=== PATIENT | female | born 1965 | race Caucasian/White ===

== ENCOUNTER 2017-03-14 20:02 | Emergency (ER) | payer OTHER ==
--- NOTE | 2017-03-14 21:05 | ED NURSING NOTES ---
Clinical Report - Nurses [facility] [address] [place] [address] 03/14/2017 20:05 Patient: KATIA JUNIOR TRIAGE Acuity: LEVEL 3. Chief Complaint: REDNESS, PAIN and FOREIGN BODY TO RIGHT EYE. Alert. No acute distress. VISUAL ACUITY: Visual acuity performed without corrective lenses: right eye 20/70; both eyes 20/25. --20:22 Mary Connor R.N. 20:19 03/14/17. BP: 147/90. HR: 88. RR: 20. O2 saturation: 100%. Pain level now: 05/13. --20:22 Mary Connor R.N. 21:09 03/14/17. Temp: 97.7 F (oral). --21:09 Mary Connor R.N. Weight: 63.5 kg stated. Height/Length: 63 inches Per Patient. BMI: 24.8. --20:19 Mary Connor R.N. Medications Percocet Oral. --20:20 Mary Connor R.N. Flonase Nasal. --20:20 Mary Connor R.N. Medication/allergy information source: the patient. --20:22 Mary Connor R.N. Allergies No Known Drug Allergy. --20:20 Mary Connor R.N. History Arrived by private vehicle. Historian: patient. Accompanied by friend. Primary physician (Anibal). This started just prior to arrival. PAST MEDICAL HX: The patient is post-menopausal. SOCIAL HX: Heavy tobacco smoker (cigarette)- less than 1 pack per day. No alcohol use or drug use. FALL RISK ASSESSMENT: Fall risk assessment completed. No fall risk identified. NUTRITIONAL RISK ASSESSMENT: The nutritional risk assessment revealed no deficiencies. FUNCTIONAL ASSESSMENT: Functional assessment: no impairments noted. LEARNING NEEDS ASSESSMENT: The learning needs assessment revealed no barriers. SKIN INTEGRITY ASSESSMENT: Skin integrity risk assessment completed. No skin integrity risk identified. --20:22 Mary Connor R.N. Interventions ID band on patient. To treatment room. --20:22 Mary Connor R.N. NURSING PROGRESS NOTES Two patient identifiers checked. Call light placed in reach. Side rails up x 1. Bed placed in lowest position. Brakes of bed on. Patient ready for evaluation- chart flagged and ED physician and PA notified. --20:22 Mary Connor R.N. 20:49 03/14/17. Irrigated right eye with 500 mL normal saline. Topical anesthetic drops were applied prior to irrigation. Patient tolerated procedure well. --20:49 Mary Connor R.N. 21:03/14/2017 Motrin PO 800 mg given. Allergies verified and confirmed 5 rights. --21: Mary Connor R.N. 21:03/14/2017 Hydrocodone-APAP (Hydrocodone-Acetaminophen) PO 5/325 mg Tablets 1 tab given. Allergies verified, confirmed 5 rights and sedative warning given to the patient. --21: Mary Connor R.N. DISPOSITION / DISCHARGE Departure time: 21:Mar 14 2017. Condition at departure: improved and stable. No learning barriers present. Discharge instructions provided and reviewed with the patient. Reviewed medication(s) side effects, precautions and dosing information. Prescription(s) given to the patient. Patient verbalized understanding. Written instructions provided in [place]. The patient was discharged by the physician shipping assistant. She was discharged home and accompanied by dehydrogenation operator. She left the Emergency Department ambulatory and via private vehicle. Roulette Dealer driving. --21:56 Mary Connor R.N. Locked/Released at 03/14/2017 21:56 by Mary Connor R.N.
--- NOTE | 2017-03-14 21:05 | ED CLINICAL REPORT ---
Clinical Report - Physicians/Mid Levels [facility] [address] [place] [address] 03/14/2017 20:05 Patient: KATIA JUNIOR Time Seen: 20:43 Bryan 11 2016. Arrived- By private vehicle. Historian- patient. HISTORY OF PRESENT ILLNESS Chief Complaint: EYE PAIN, REDNESS and IRRITATION. This started just prior to arrival, involves the right eye and is characterized as mild. The patient may have sustained an injury. Not injured from contact lenses. Eye pain, discomfort and redness. ( While mowing the lawn, patient sustained a foreign body sensation to the right eye. Incident occurred just prior to arrival. No diplopia, no vision changes, blurred vision and sensation of fb. At times does wear contacts, has not recently, is not currently.). REVIEW OF SYSTEMS No fever or sore throat. All systems otherwise negative, except as recorded above. PAST HISTORY No history of prior eye injury. ADDITIONAL NOTES The nursing notes have been reviewed. PHYSICAL EXAM Vital Signs: 03/14/2017 20:19 BP: 147/90. HR: 88. RR: 20. O2 saturation: 100%. Pain level now: 8/10. Appearance: Alert. HEENT: Ears normal. Nose normal. Head appears normal to external inspection. Rt Eye: Injected conjunctiva. Corneal foreign body is present. Corneal abrasion present. Fluorescein dye uptake on the cornea. Pupil regular. Pupil not constricted. No cells present in the anterior chamber. Eyes: Visual acuity noted- see nurse's notes. Right eyelid everted for examination. Right cornea examined with fluorescein stain. Eyelids appear normal to inspection. Conjunctivae and sclerae appear normal to inspection. Corneas appear normal to inspection. Pupils equal, round and reactive to light. Accommodation normal. Right eye examined with slit lamp. Anterior chambers clear. Anterior chambers of normal depth. Lt Eye: Left eye exam normal. Neck: Neck supple. Normal inspection. CVS: Normal heart rate and rhythm. Heart sounds normal. Normal rhythm. No cardiac murmur. Respiratory: No respiratory distress. Breath sounds normal. Skin: No rash. Neuro: Oriented X 3. PROGRESS AND PROCEDURES Removal of Eye Foreign Body: Time: 2054Mar 14 2017. Time-out completed immediately before the procedure. After topical anesthesia with 2 drops of Proparacaine, a single foreign body was successfully removed from the right eye using irrigation, fluorescein and a Wood's lamp. Aftercare included antibiotic ointment. The patient was cooperative. Course of Care: Patient was small dust particles in the eye, which were removed successfully in the emergency department. Patient taller procedure well. Given injury and injection will treat with antibiotics. Patient with no vision changes. Stable. To f/u outpatient. No other protruding injuries. Exam with slit lamp. right eye 20/70; both eyes 20/25. 03/14/2017 21:09 Temp: 97.7 F. 03/14/2017 20:19 BP: 147/90. HR: 88. RR: 20. O2 saturation: 100%. Pain level now: 8/10. Patient is stable. Patient/family counseled. Disposition: Discharged. Condition: good. CLINICAL IMPRESSION Removed corneal foreign body right eye. INSTRUCTIONS (Address: [address] [place] [address] [place] [address] [employer] cool rags to eye). Prescription Medications: Polytrim ophthalmic solution: Instill 1 drop into affected eye every 3 hours while awake (max 6 doses per day) for 1 week. Dispense five (5) mL. No refills. Substitution is permissible. Ibuprofen 600 mg tablets: take 1 tablet orally every 8 hours for 5 days, as needed for pain. Dispense fifteen (15). No refill. Follow-up: Follow up with your doctor in three days. (Electronically signed by Caitlin Tellez P.A.-C 03/14/2017 21:35)
--- NOTE | 2017-03-14 21:05 | ED CLINICAL REPORT ---
Clinical Report - Physicians/Mid Levels [facility] [address] [place] [address] 03/14/2017 20:05 Patient: KATIA JUNIOR Time Seen: 20:43 Bryan 11 2016. Arrived- By private vehicle. Historian- patient. HISTORY OF PRESENT ILLNESS Chief Complaint: EYE PAIN, REDNESS and IRRITATION. This started just prior to arrival, involves the right eye and is characterized as mild. The patient may have sustained an injury. Not injured from contact lenses. Eye pain, discomfort and redness. ( While mowing the lawn, patient sustained a foreign body sensation to the right eye. Incident occurred just prior to arrival. No diplopia, no vision changes, blurred vision and sensation of fb. At times does wear contacts, has not recently, is not currently.). REVIEW OF SYSTEMS No fever or sore throat. All systems otherwise negative, except as recorded above. PAST HISTORY No history of prior eye injury. ADDITIONAL NOTES The nursing notes have been reviewed. PHYSICAL EXAM Vital Signs: 03/14/2017 20:19 BP: 147/90. HR: 88. RR: 20. O2 saturation: 100%. Pain level now: 8/10. Appearance: Alert. HEENT: Ears normal. Nose normal. Head appears normal to external inspection. Rt Eye: Injected conjunctiva. Corneal foreign body is present. Corneal abrasion present. Fluorescein dye uptake on the cornea. Pupil regular. Pupil not constricted. No cells present in the anterior chamber. Eyes: Visual acuity noted- see nurse's notes. Right eyelid everted for examination. Right cornea examined with fluorescein stain. Eyelids appear normal to inspection. Conjunctivae and sclerae appear normal to inspection. Corneas appear normal to inspection. Pupils equal, round and reactive to light. Accommodation normal. Right eye examined with slit lamp. Anterior chambers clear. Anterior chambers of normal depth. Lt Eye: Left eye exam normal. Neck: Neck supple. Normal inspection. CVS: Normal heart rate and rhythm. Heart sounds normal. Normal rhythm. No cardiac murmur. Respiratory: No respiratory distress. Breath sounds normal. Skin: No rash. Neuro: Oriented X 3. PROGRESS AND PROCEDURES Removal of Eye Foreign Body: Time: 2054Mar 14 2017. Time-out completed immediately before the procedure. After topical anesthesia with 2 drops of Proparacaine, a single foreign body was successfully removed from the right eye using irrigation, fluorescein and a Wood's lamp. Aftercare included antibiotic ointment. The patient was cooperative. Course of Care: Patient was small dust particles in the eye, which were removed successfully in the emergency department. Patient taller procedure well. Given injury and injection will treat with antibiotics. Patient with no vision changes. Stable. To f/u outpatient. No other protruding injuries. Exam with slit lamp. right eye 20/70; both eyes 20/25. 03/14/2017 21:09 Temp: 97.7 F. 03/14/2017 20:19 BP: 147/90. HR: 88. RR: 20. O2 saturation: 100%. Pain level now: 8/10. Patient is stable. Patient/family counseled. Disposition: Discharged. Condition: good. CLINICAL IMPRESSION Removed corneal foreign body right eye. INSTRUCTIONS (Address: [address] [place] [address] [place] [address] [employer] cool rags to eye). Prescription Medications: Polytrim ophthalmic solution: Instill 1 drop into affected eye every 3 hours while awake (max 6 doses per day) for 1 week. Dispense five (5) mL. No refills. Substitution is permissible. Ibuprofen 600 mg tablets: take 1 tablet orally every 8 hours for 5 days, as needed for pain. Dispense fifteen (15). No refill. Follow-up: Follow up with your doctor in three days. (Electronically signed by Caitlin Tellez P.A.-C 03/14/2017 21:35)
--- NOTE | 2017-03-14 21:05 | ED ORDER SUMMARY ---
..... Patient: KATIA JUNIOR OrderSheet [facility] VisitID: [id number] [address] [place] [address] 51y, F Registration Date/Time: 03/14/2017 ORDER SHEET Weight: 63.5 kg (stated) Allergies: No Known Drug Allergy GENERAL ORDERS: Irrigate Wounds (R. eye) (20:42 03/14/2017 EKoroleva P.A.-C) (20:48 MWinterer R.N.) MEDICATION ORDERS: Motrin PO 800 mg (NOW) (21:01 03/14/2017 EKoroleva P.A.-C) (Ack 21:05 MWinterer R.N.) (21:09 MWinterer R.N.) Hydrocodone-APAP PO 5/325 mg (NOW, HIGH ALERT MEDICATION) (21:01 03/14/2017 EKoroleva P.A.-C) (Ack 21:05 MWinterer R.N.) (21:09 MWinterer R.N.) IV FLUIDS: ORDER SHEET NOTES: [Electronically signed by Caitlin TellezAKarel-C (21:35 03/14/2017)] [Electronically signed by Mary Connor R.N. (21:56 03/14/2017)] [Electronically locked/signed by Mary Connor R.N. (21:56 03/14/2017)]
--- NOTE | 2017-03-14 21:05 | ED ORDER SUMMARY ---
..... Patient: KATIA JUNIOR OrderSheet [facility] VisitID: [id number] [address] [place] [address] 51y, F Registration Date/Time: 03/14/2017 ORDER SHEET Weight: 63.5 kg (stated) Allergies: No Known Drug Allergy GENERAL ORDERS: Irrigate Wounds (R. eye) (20:42 03/14/2017 EKoroleva P.A.-C) (20:48 MWinterer R.N.) MEDICATION ORDERS: Motrin PO 800 mg (NOW) (21:01 03/14/2017 EKoroleva P.A.-C) (Ack 21:05 MWinterer R.N.) (21:09 MWinterer R.N.) Hydrocodone-APAP PO 5/325 mg (NOW, HIGH ALERT MEDICATION) (21:01 03/14/2017 EKoroleva P.A.-C) (Ack 21:05 MWinterer R.N.) (21:09 MWinterer R.N.) IV FLUIDS: ORDER SHEET NOTES: [Electronically signed by Caitlin TellezAKarel-C (21:35 03/14/2017)] [Electronically signed by Mary Connor R.N. (21:56 03/14/2017)] [Electronically locked/signed by Mary Connor R.N. (21:56 03/14/2017)]
--- NOTE | 2017-03-14 21:05 | ED NURSING NOTES ---
Clinical Report - Nurses [facility] [address] [place] [address] 03/14/2017 20:05 Patient: KATIA JUNIOR TRIAGE Acuity: LEVEL 3. Chief Complaint: REDNESS, PAIN and FOREIGN BODY TO RIGHT EYE. Alert. No acute distress. VISUAL ACUITY: Visual acuity performed without corrective lenses: right eye 20/70; both eyes 20/25. --20:22 Mary Connor R.N. 20:19 03/14/17. BP: 147/90. HR: 88. RR: 20. O2 saturation: 100%. Pain level now: 05/13. --20:22 Mary Connor R.N. 21:09 03/14/17. Temp: 97.7 F (oral). --21:09 Mary Connor R.N. Weight: 63.5 kg stated. Height/Length: 63 inches Per Patient. BMI: 24.8. --20:19 Mary Connor R.N. Medications Percocet Oral. --20:20 Mary Connor R.N. Flonase Nasal. --20:20 Mary Connor R.N. Medication/allergy information source: the patient. --20:22 Mary Connor R.N. Allergies No Known Drug Allergy. --20:20 Mary Connor R.N. History Arrived by private vehicle. Historian: patient. Accompanied by friend. Primary physician (Anibal). This started just prior to arrival. PAST MEDICAL HX: The patient is post-menopausal. SOCIAL HX: Heavy tobacco smoker (cigarette)- less than 1 pack per day. No alcohol use or drug use. FALL RISK ASSESSMENT: Fall risk assessment completed. No fall risk identified. NUTRITIONAL RISK ASSESSMENT: The nutritional risk assessment revealed no deficiencies. FUNCTIONAL ASSESSMENT: Functional assessment: no impairments noted. LEARNING NEEDS ASSESSMENT: The learning needs assessment revealed no barriers. SKIN INTEGRITY ASSESSMENT: Skin integrity risk assessment completed. No skin integrity risk identified. --20:22 Mary Connor R.N. Interventions ID band on patient. To treatment room. --20:22 Mary Connor R.N. NURSING PROGRESS NOTES Two patient identifiers checked. Call light placed in reach. Side rails up x 1. Bed placed in lowest position. Brakes of bed on. Patient ready for evaluation- chart flagged and ED physician and PA notified. --20:22 Mary Connor R.N. 20:49 03/14/17. Irrigated right eye with 500 mL normal saline. Topical anesthetic drops were applied prior to irrigation. Patient tolerated procedure well. --20:49 Mary Connor R.N. 21:03/14/2017 Motrin PO 800 mg given. Allergies verified and confirmed 5 rights. --21: Mary Connor R.N. 21:03/14/2017 Hydrocodone-APAP (Hydrocodone-Acetaminophen) PO 5/325 mg Tablets 1 tab given. Allergies verified, confirmed 5 rights and sedative warning given to the patient. --21: Mary Connor R.N. DISPOSITION / DISCHARGE Departure time: 21:Mar 14 2017. Condition at departure: improved and stable. No learning barriers present. Discharge instructions provided and reviewed with the patient. Reviewed medication(s) side effects, precautions and dosing information. Prescription(s) given to the patient. Patient verbalized understanding. Written instructions provided in [place]. The patient was discharged by the physician operations administrative assistant. She was discharged home and accompanied by plant utility person. She left the Emergency Department ambulatory and via private vehicle. Contracting Officer driving. --21:56 Mary Connor R.N. Locked/Released at 03/14/2017 21:56 by Mary Connor R.N.
--- NOTE | 2017-03-14 21:57 | ED MAR SUMMARY ---
..... Medication Administration Record [facility] [address] [place] [address] Patient: KATIA JUNIOR Visit ID: [id number] 51y, F Weight: 63.5 kg Height/Length: 63 in BMI: 24.8 ALLERGIES: No Known Drug Allergy Given 21:08 03/14/2017 Mary Connor RKarelNKarel Medication Administered: MOTRIN [PO], Dose: 800 mg PO. Medication Ordered: Motrin PO 800 mg (NOW). Given 21:09 03/14/2017 Mary Connor, R.N. Medication Administered: HYDROCODONE-APAP [PO] (HYDROCODONE-ACETAMINOPHEN), Dose: 1 tab 5/325 mg Tablets PO. Medication Ordered: Hydrocodone-APAP PO 5/325 mg (NOW, HIGH ALERT MEDICATION).
--- NOTE | 2017-03-14 21:57 | ED DISCHARGE INSTRUCTIONS ---
Patient: KATIA JUNIOR General Instructions [facility] VisitID: [id number] [place] [address] 51y, F Registration Date/Time: 03/14/2017 Removed corneal foreign body right eye. INSTRUCTIONS (Address: [address] [place] [address] [place] [address] [employer] cool rags to eye). Prescription Medications: Polytrim ophthalmic solution: Instill 1 drop into affected eye every 3 hours while awake (max 6 doses per day) for 1 week. Dispense five (5) mL. No refills. Substitution is permissible. Ibuprofen 600 mg tablets: take 1 tablet orally every 8 hours for 5 days, as needed for pain. Dispense fifteen (15). No refill. Follow-up: Follow up with your doctor in three days. ADDITIONAL INFORMATION Particle Removed From Eye [Corneal F.B.] A particle got into your eye and stuck to the cornea (the clear part in front of the eye). Your doctor has removed this particle. The cornea is very sensitive and may still hurt for another one to two days while it heals. If a metal particle was in your eye, a "rust ring" may have formed. This may require a second visit for complete removal. Home Care: A cold pack (ice in a plastic bag, wrapped in a towel) may be applied over the eye for 20 minutes at a time to reduce pain. You may use acetaminophen (Tylenol) or ibuprofen (Motrin, Advil) to control pain, unless another pain medicine was prescribed. [NOTE: If you have chronic liver or kidney disease or ever had a stomach ulcer or GI bleeding, talk with your doctor before using these medicines.] If an EYE PATCH was applied: You may place the ice pack directly over the eye-patch. If you were given a return appointment for patch removal and re-exam, do not miss it. An eye patch should not be left in place for more than 48 hours, unless advised to do so by your doctor. DO NOT DRIVE a motor vehicle or operate machinery with the patch in place since you will have difficulty in judging distances with only one eye. If eye drops or ointment was prescribed, take as directed. Follow Up: If no patch was used but the pain continues for more than 48 hours, you should have another exam. Return to this facility or contact the referral doctor to arrange this. If your eye was patched and if you were asked to remove the patch yourself, see your doctor or return to this facility if your pain is still present after removal. If you were given a return appointment for patch removal and re-exam, do not miss this. It could be harmful if the patch remains in place longer than advised. Get Prompt Medical Attention if any of the following occur: Increasing eye pain or pain that does not improve after 24 hours Discharge from the eye Redness of the eye or swelling of the eyelids Worsening vision You have been given the following additional information: Corneal Foreign Body, Removed (Electronically signed by Caitlin Tellez P.A.-C 03/14/2017 21:35)
--- NOTE | 2017-03-14 21:57 | ED MED RECONCILIATION SUMMARY ---
Patient: KATIA JUNIOR Medication Reconciliation Report [facility] VisitID: [id number] [address] [place] [address] 51y, F Registration Date/Time: 03/14/2017 Weight: 63.5 kg Height/Length: 63 in. BMI: 24.8 ALLERGIES: No Known Drug Allergy The patient's Home Medications are listed below: THE FOLLOWING MEDICATIONS NEED TO BE RECONCILED: Flonase Nasal Percocet Oral The source(s) of the original Home Medication information: patient The following Medications were given to the patient in the Emergency Department: Motrin [PO] PO 800 mg, administered: 03/14/2017 9:08:00 PM Hydrocodone-APAP [PO] PO 1 tab, administered: 03/14/2017 9:09:00 PM The following Medications were prescribed to the patient: Polytrim ophthalmic solution: Instill 1 drop into affected eye every 3 hours while awake (max 6 doses per day) for 1 week. Dispense five (5) mL. No refills. Substitution is permissible. -- Caitlin Tellez, P.A.-C Ibuprofen 600 mg tablets: take 1 tablet orally every 8 hours for 5 days, as needed for pain. Dispense fifteen (15). No refill. -- Caitlin Tellez, P.A.-C
--- NOTE | 2017-03-14 21:57 | ED MED RECONCILIATION SUMMARY ---
Patient: KATIA JUNIOR Medication Reconciliation Report [facility] VisitID: [id number] [address] [place] [address] 51y, F Registration Date/Time: 03/14/2017 Weight: 63.5 kg Height/Length: 63 in. BMI: 24.8 ALLERGIES: No Known Drug Allergy The patient's Home Medications are listed below: THE FOLLOWING MEDICATIONS NEED TO BE RECONCILED: Flonase Nasal Percocet Oral The source(s) of the original Home Medication information: patient The following Medications were given to the patient in the Emergency Department: Motrin [PO] PO 800 mg, administered: 03/14/2017 9:08:00 PM Hydrocodone-APAP [PO] PO 1 tab, administered: 03/14/2017 9:09:00 PM The following Medications were prescribed to the patient: Polytrim ophthalmic solution: Instill 1 drop into affected eye every 3 hours while awake (max 6 doses per day) for 1 week. Dispense five (5) mL. No refills. Substitution is permissible. -- Caitlin Tellez, P.A.-C Ibuprofen 600 mg tablets: take 1 tablet orally every 8 hours for 5 days, as needed for pain. Dispense fifteen (15). No refill. -- Caitlin Tellez, P.A.-C
--- NOTE | 2017-03-14 21:57 | ED MAR SUMMARY ---
..... Medication Administration Record [facility] [address] [place] [address] Patient: KATIA JUNIOR Visit ID: [id number] 51y, F Weight: 63.5 kg Height/Length: 63 in BMI: 24.8 ALLERGIES: No Known Drug Allergy Given 21:08 03/14/2017 Mary Connor RKarelNKarel Medication Administered: MOTRIN [PO], Dose: 800 mg PO. Medication Ordered: Motrin PO 800 mg (NOW). Given 21:09 03/14/2017 Mary Connor, R.N. Medication Administered: HYDROCODONE-APAP [PO] (HYDROCODONE-ACETAMINOPHEN), Dose: 1 tab 5/325 mg Tablets PO. Medication Ordered: Hydrocodone-APAP PO 5/325 mg (NOW, HIGH ALERT MEDICATION).
--- NOTE | 2017-03-14 21:57 | ED DISCHARGE INSTRUCTIONS ---
Patient: KATIA JUNIOR General Instructions [facility] VisitID: [id number] [place] [address] 51y, F Registration Date/Time: 03/14/2017 Removed corneal foreign body right eye. INSTRUCTIONS (Address: [address] [place] [address] [place] [address] [facility] cool rags to eye). Prescription Medications: Polytrim ophthalmic solution: Instill 1 drop into affected eye every 3 hours while awake (max 6 doses per day) for 1 week. Dispense five (5) mL. No refills. Substitution is permissible. Ibuprofen 600 mg tablets: take 1 tablet orally every 8 hours for 5 days, as needed for pain. Dispense fifteen (15). No refill. Follow-up: Follow up with your doctor in three days. ADDITIONAL INFORMATION Particle Removed From Eye [Corneal F.B.] A particle got into your eye and stuck to the cornea (the clear part in front of the eye). Your doctor has removed this particle. The cornea is very sensitive and may still hurt for another one to two days while it heals. If a metal particle was in your eye, a "rust ring" may have formed. This may require a second visit for complete removal. Home Care: A cold pack (ice in a plastic bag, wrapped in a towel) may be applied over the eye for 20 minutes at a time to reduce pain. You may use acetaminophen (Tylenol) or ibuprofen (Motrin, Advil) to control pain, unless another pain medicine was prescribed. [NOTE: If you have chronic liver or kidney disease or ever had a stomach ulcer or GI bleeding, talk with your doctor before using these medicines.] If an EYE PATCH was applied: You may place the ice pack directly over the eye-patch. If you were given a return appointment for patch removal and re-exam, do not miss it. An eye patch should not be left in place for more than 48 hours, unless advised to do so by your doctor. DO NOT DRIVE a motor vehicle or operate machinery with the patch in place since you will have difficulty in judging distances with only one eye. If eye drops or ointment was prescribed, take as directed. Follow Up: If no patch was used but the pain continues for more than 48 hours, you should have another exam. Return to this facility or contact the referral doctor to arrange this. If your eye was patched and if you were asked to remove the patch yourself, see your doctor or return to this facility if your pain is still present after removal. If you were given a return appointment for patch removal and re-exam, do not miss this. It could be harmful if the patch remains in place longer than advised. Get Prompt Medical Attention if any of the following occur: Increasing eye pain or pain that does not improve after 24 hours Discharge from the eye Redness of the eye or swelling of the eyelids Worsening vision You have been given the following additional information: Corneal Foreign Body, Removed (Electronically signed by Caitlin Tellez P.A.-C 03/14/2017 21:35)
== END 2017-03-14 21:10 | disposition home or self-care (01) ==
LOC: ED SRH 20:02
DX: T15.01XA Foreign body in cornea, right eye, initial encounter (principal); X58.XXXA Exposure to other specified factors, initial encounter; Y93.89 Activity, other specified; Y99.9 Unspecified external cause status; Y92.9 Unspecified place or not applicable; Z79.891 Long term (current) use of opiate analgesic; Z79.899 Other long term (current) drug therapy; F17.210 Nicotine dependence, cigarettes, uncomplicated